=== PATIENT | female | born 1945 | race Caucasian/White ===

== ENCOUNTER 2021-04-22 15:03 | Outpatient (CLI) | payer MEDICARE, OTHER, SELFPAY ==
[2021-04-22] MEDS: 0.9% Saline Lock 10 ML Syringe IV (15:23)
[2021-04-22 15:33] VITALS: BP 119/55; PULSE 68; RESP 59; TEMP 36.6; O2SAT 98; BMI 29.2
[2021-04-22 16:10] VITALS: BP 122/56; PULSE 51; RESP 16; TEMP 36.6; O2SAT 98
[2021-04-22 17:05] VITALS: BP 111/57; PULSE 66; RESP 16; TEMP 36.7; O2SAT 100
== END 2021-04-22 17:10 | disposition home or self-care (01) ==
LOC: MS3OUT 15:04 → MS3 15:04
PROVIDERS: Referring Provider Nurse Practitioner Adult Health; Visit Provider Nurse Practitioner Adult Health
DX: Z23 Encounter for immunization (principal); U07.1 COVID-19
CPT/HCPCS: J7050; M0245; Q0245; A4216